=== PATIENT | male | born 1970 | race Caucasian/White ===

== ENCOUNTER → 2024-07-29 | Day surgery (SDC) | payer OTHER ==
[~2024-07-29] MED LIST: ACETAMINOPHEN-1 EAC4 PO; ALLEGRA ALLERGY60 MG PO; AMOX TR-K CLV1 EAC2 PO; BENICAR20 MG PO; FENTANYL CITRATE/PF 100MCG/2 ML INJ ONE; LIDOCAINE HCL 2% LOCAL INJ 5 ML SDV VIAL INJ ONE; MIDAZOLAM HCL 2 MG/2 ML VIAL ONE; MULTI-VITAMIN1 EACH PO; OMEGA-31000 MG PO; PROPOFOL IV EMULSION 10 MG/ML 20 ML VIAL ONE; TESTOSTERO200 MG/1 M INJ; TESTOSTERONE INJ
[2024-07-29] MEDS: LACTATED RINGER'S 1,000 ML ONE (07:45)
[2024-07-29 10:43] VITALS: TEMP 97
[2024-07-29 11:00] VITALS: BP 128/78; PULSE 70; RESP 16; O2SAT 98
== END | disposition home or self-care (01) ==
LOC: OR 07:36
PROVIDERS: ATTEND Plastic Surgery
DX: S60.131A Contusion of right middle finger with damage to nail, initial encounter (principal); B35.1 Tinea unguium; I10 Essential (primary) hypertension; X58.XXXA Exposure to other specified factors, initial encounter; Z79.899 Other long term (current) drug therapy
CPT/HCPCS: 11730; J0690; J2003; J2250; J2704; J3010; J7121